=== PATIENT | female | born 1965 | race Caucasian/White ===

== ENCOUNTER 2019-06-14 19:11 | Emergency (ER) | payer SELFPAY ==
[~2019-06-14] VITALS: Ht 165.1 cm; Wt 68.2 kg
[2019-06-14] MEDS ORDERED: LIDOCAINE 1%/EPI 1:100,000 10 ML VIAL IJ ONE (23:00)
[2019-06-14] MEDS ORDERED: LIDOCAINE HCL/EPINEPHRINE 1%-EPI 1:100,000 20 ML VIAL INFIL SCH (23:00)
[2019-06-15 00:18] VITALS: BP 121/71
== END 2019-06-15 00:19 | disposition home or self-care (01) ==
LOC: ER 19:16
DX: L02.811 Cutaneous abscess of head [any part, except face] (principal); Z78.0 Asymptomatic menopausal state
CPT/HCPCS: 10060; 99283; J3490; Z7610

== ENCOUNTER 2019-06-17 08:05 | Emergency (ER) | payer MEDICAID ==
[~2019-06-17] VITALS: Ht 165.1 cm; Wt 67.0 kg
[2019-06-17] MEDS ORDERED: IBUPROFEN (08:20)
[2019-06-17 09:46] VITALS: BP 110/50
== END 2019-06-17 09:36 | disposition home or self-care (01) ==
LOC: ER 08:38
DX: Z48.00 Encounter for change or removal of nonsurgical wound dressing (principal); L02.811 Cutaneous abscess of head [any part, except face]
CPT/HCPCS: 99283

== ENCOUNTER 2022-08-17 01:58 | Emergency (ER) | payer MEDICAID ==
[~2022-08-17] VITALS: Ht 160 cm; Wt 71.9 kg
[~2022-08-17 01:58] MED LIST: IBUPROFEN
[2022-08-17 02:55] VITALS: BP 117/75
[2022-08-17] MEDS ORDERED: IBUPROFEN 600MG TABLET PO ONE (03:30)
[2022-08-17] MEDS ORDERED: IBUP-2028 MT (05:26)
== END 2022-08-17 06:54 | disposition home or self-care (01) ==
LOC: ER 01:58
DX: S66.812A Strain of other specified muscles, fascia and tendons at wrist and hand level, left hand, initial encounter (principal); Z90.49 Acquired absence of other specified parts of digestive tract; Z98.890 Other specified postprocedural states; Z91.010 Allergy to peanuts; W01.0XXA Fall on same level from slipping, tripping and stumbling without subsequent striking against object, initial encounter; Y93.89 Activity, other specified; Y92.89 Other specified places as the place of occurrence of the external cause; Y99.8 Other external cause status
CPT/HCPCS: 73110; 73130; 99284

== ENCOUNTER 2023-01-11 13:39 | Emergency (ER) | payer MEDICAID ==
[~2023-01-11] VITALS: Ht 157.5 cm; Wt 72.7 kg
[~2023-01-11 13:39] MED LIST changes: +IBUP-2028 MT
[2023-01-11 13:49] VITALS: BP 99/54; PULSE 58; RESP 18; TEMP 98.5; O2SAT 99
[2023-01-11] MEDS ORDERED: AMOX1TAB16 MT (16:35)
== END 2023-01-11 17:36 | disposition home or self-care (01) ==
LOC: ER 13:39
DX: J32.9 Chronic sinusitis, unspecified (principal); Z90.49 Acquired absence of other specified parts of digestive tract; Z98.890 Other specified postprocedural states
CPT/HCPCS: 99283

== ENCOUNTER 2023-07-26 08:51 | Emergency (ER) | payer MEDICAID ==
[~2023-07-26] VITALS: Ht 157.5 cm; Wt 77.0 kg
[~2023-07-26 08:51] MED LIST changes: +AMOX1TAB16 MT
[2023-07-26 08:53] VITALS: BP 116/68; TEMP 98.2; O2SAT 96
[2023-07-26 08:54] VITALS: PULSE 59; RESP 16
== END 2023-07-26 10:55 | disposition home or self-care (01) ==
LOC: ER 08:51
DX: M79.662 Pain in left lower leg (principal); E11.9 Type 2 diabetes mellitus without complications; Z90.49 Acquired absence of other specified parts of digestive tract; Z98.890 Other specified postprocedural states; Z91.010 Allergy to peanuts
CPT/HCPCS: 81025; 93971; 99284

== ENCOUNTER 2023-11-22 07:14 | Emergency (ER) | payer MEDICAID ==
[~2023-11-22] VITALS: Ht 162.6 cm; Wt 72.6 kg
[2023-11-22 07:29] VITALS: BP 132/73; PULSE 56; RESP 16; TEMP 98.3; O2SAT 99
[2023-11-22] MEDS: FLUTICASONE PROPIONATE 50MCG/SPRAY BOTTLE BOTHNSTRLS STA (07:54)
[2023-11-22] MEDS: LORATADINE 10MG TABLET PO STA (07:54)
[2023-11-22] MEDS ORDERED: TOPUD PO (08:34)
[2023-11-22] MEDS ORDERED: LORA10CA PO (08:34)
== END 2023-11-22 09:08 | disposition home or self-care (01) ==
LOC: ER 07:14
DX: J32.9 Chronic sinusitis, unspecified (principal); E11.9 Type 2 diabetes mellitus without complications; Z90.49 Acquired absence of other specified parts of digestive tract; Z98.890 Other specified postprocedural states; Z91.010 Allergy to peanuts
CPT/HCPCS: 99283